=== PATIENT | male | born 1945 | race Caucasian/White ===

== ENCOUNTER 2017-03-06 16:57 | Emergency (ER) | payer MEDICARE, SELFPAY | END 2017-03-06 18:37 | LOC: ER 16:57 | DX: E87.5 Hyperkalemia (principal); Z71.1 Person with feared health complaint in whom no diagnosis is made; I51.9 Heart disease, unspecified; J60 Coalworker's pneumoconiosis; I10 Essential (primary) hypertension; Z95.1 Presence of aortocoronary bypass graft; Z95.4 Presence of other heart-valve replacement ==